=== PATIENT | male | born 1940 | race Hispanic/Latino ===

== ENCOUNTER 2022-01-29 23:34 | Emergency (ER) | payer OTHER, MEDICARE ==
[~2022-01-29] VITALS: Ht 160 cm; Wt 63.5 kg
[~2022-01-29 23:34] MED LIST: AEC81 PO; ASCO100031 PO; ATOR10 PO; CALC-1125 PO; CARB1TAB42 PO; CHOL400T4 PO; CYAN250014 PO; DENO120V SQ; DOCU100C33 PO; DONE-53 PO; ENZA40CA PO; FERS325 PO; HYDR-4060 PO; LEUP22.52 IM; MEMA10TA55 PO; ROPI2TAB29 PO; SERT-439 PO
[2022-01-30 04:24] VITALS: BP 99/47
== END 2022-01-30 08:06 | disposition home or self-care (01) ==
LOC: EDH 23:34
DX: C61 Malignant neoplasm of prostate (principal); R31.9 Hematuria, unspecified; G20 Parkinson's disease; G30.9 Alzheimer's disease, unspecified; F02.80 Dementia in other diseases classified elsewhere, unspecified severity, without behavioral disturbance, psychotic disturbance, mood disturbance, and anxiety; Z79.82 Long term (current) use of aspirin